=== PATIENT | female | born 1940 | race Caucasian/White ===

== ENCOUNTER 2019-06-08 13:55 | Day surgery (SDC) | payer MEDICARE, BC ==
[2019-06-02 17:02] LABS: BASOPHILS # (AUTO) 0.1 X10'3 (0-0.2); BASOPHILS % (AUTO) 1.3 % (0-1); EOSINOPHILS # (AUTO) 0.8 X10'3 (0-0.9); EOSINOPHILS % (AUTO) 10.9 % (0-6); HEMATOCRIT 47.3 % (35.0-45.0); HEMOGLOBIN 15.7 g/dl (12.0-16.0); LYMPHOCYTES % (AUTO) 26.3 % (21-51); MEAN CORPUSCULAR HEMOGLOBIN 30.2 PG (27.0-31.0); MEAN CORPUSCULAR HGB CONC 33.2 g/dL (33.0-36.5); MEAN CORPUSCULAR VOLUME 90.9 FL (78-98); MEAN PLATELET VOLUME 8.6 FL (7.4-10.4); MONOCYTES # (AUTO) 1.1 X10'3 (0-0.9); MONOCYTES % (AUTO) 14.5 % (2-12); NEUTROPHILS # (AUTO) 3.6 X10'3 (1.8-7.7); PLATELET COUNT 247 X10'3 (140-440); RED CELL DISTRIBUTION WIDTH 13.8 % (11.5-14.5); WHITE BLOOD COUNT 7.6 X10'3 (4.5-11.0)
[2019-06-02 17:06] LABS: ALBUMIN 3.4 G/DL (3.4-5.0); ANION GAP 5 (8-16); BLOOD UREA NITROGEN 20 MG/DL (7-18); BUN/CREATININE RATIO 23.8 (6.6-38.0); CALCIUM 8.8 MG/DL (8.5-10.1); CHLORIDE 108 MMOL/L (99-107); CREATININE 0.84 MG/DL (0.40-0.90); GLUCOSE 89 MG/DL (70-104); POTASSIUM 4.1 MMOL/L (3.5-5.1); SODIUM 144 MMOL/L (135-145); TOTAL CARBON DIOXIDE 31.1 MMOL/L (24-32); eGFR 65 ML/MIN
[2019-06-02 17:17] LABS: PARTIAL THROMBOPLASTIN TIME 42 SECONDS (22-32)
[~2019-06-08] VITALS: Ht 147.3 cm; Wt 53.2 kg
[2019-06-08] VITALS (14 sets, daily range): BP systolic 124–160; BP diastolic 62–91
[~2019-06-08 13:55] MED LIST: CALC-472 PO; CARSR60C PO; CHLO500T2 PO; CHOL100062 PO; COU4T PO; HYDR-4353 PO; LORA1TAB PO; OMEG-79 PO; PERICOLACE; POLY17PO10 PO; RANI-648 PO; VITA1CAP62 PO
[2019-06-08] MEDS ORDERED: MIDAZolam 5mg/ml 2ml vial IV ONE (14:10)
[2019-06-08] MEDS ORDERED: fentaNYL/PF 50MCG/1 ML 2ML syringe IV ONE (14:10)
[2019-06-08] MEDS ORDERED: normal saline 1000ml 1,000 ML IV SCH (14:10)
[2019-06-08] MEDS ORDERED: BIOT50002 PEG (14:34)
[2019-06-08] MEDS ORDERED: ESCI5TAB PO (14:34)
[2019-06-08] MEDS ORDERED: AMIO200T36 PO (14:34)
[2019-06-08] MEDS ORDERED: DENO60DI (14:34)
[2019-06-08] MEDS ORDERED: MAGN500C16 PO (14:34)
[2019-06-08] MEDS ORDERED: HYDR12.5 PO (14:34)
[2019-06-08] MEDS ORDERED: pro air inhaler INH (14:34)
== END 2019-06-08 18:45 | disposition home or self-care (01) ==
LOC: SSTAY O 13:55
PROVIDERS: ATTEND Internal Medicine Interventional Cardiology
DX: I48.0 Paroxysmal atrial fibrillation (principal); I10 Essential (primary) hypertension; I48.92 Unspecified atrial flutter; Z85.3 Personal history of malignant neoplasm of breast; Z88.0 Allergy status to penicillin; Z88.8 Allergy status to other drugs, medicaments and biological substances; Z79.01 Long term (current) use of anticoagulants; Z79.899 Other long term (current) drug therapy
CPT/HCPCS: 36415; 80048; 85025; 85610; 85730; 92960; 93005; 94760; J2250; J3010; J7030

== ENCOUNTER 2019-08-19 07:07 | Outpatient (CLI) | payer MEDICARE, BC ==
[~2019-08-19] VITALS: Ht 147.3 cm; Wt 54.0 kg
[~2019-08-19 07:07] MED LIST changes: +AMIO200T36 PO; +BIOT50002 PEG; -CHLO500T2 PO; +DENO60DI; +ESCI5TAB PO; +HYDR12.5 PO; +MAGN500C16 PO; -PERICOLACE; +pro air inhaler INH
[2019-08-19 07:35] LABS: TOTAL HEMOGLOBIN 16.6 G/dl (12.0-16.0)
[2019-08-19] MEDS ORDERED: albuterol 2.5 MG/3 ML nebule NEB PRN (07:50)
== END 2019-08-19 23:59 | disposition home or self-care (01) ==
LOC: RT 07:07
PROVIDERS: ATTEND Specialist
DX: J98.4 Other disorders of lung (principal); I48.0 Paroxysmal atrial fibrillation; I10 Essential (primary) hypertension; F17.200 Nicotine dependence, unspecified, uncomplicated; Z88.0 Allergy status to penicillin; Z79.899 Other long term (current) drug therapy
CPT/HCPCS: 85018; 94060; 94727; 94729; 94760

== ENCOUNTER 2023-07-14 06:03 | Inpatient (IN) | payer MEDICARE, BC ==
[~2023-07-14] VITALS: Ht 147.3 cm; Wt 55.5 kg
[~2023-07-14 06:03] MED LIST changes: +ALBU18HF2 INH; -AMIO200T36 PO; +APIX5TAB3 PO; -BIOT50002 PEG; -CALC-472 PO; -CARSR60C PO; -CHOL100062 PO; -COU4T PO; -DENO60DI; +DENO60DI SQ; +DILT60TA3 PO; +DILT60TA41 PO; +ESCI-8 PO; -ESCI5TAB PO; +FLUT1BLS4 INH; -HYDR12.5 PO; +HYDR12.55 PO; +LIDO700A47 TOP; +LORA-269 PO; -LORA1TAB PO; -MAGN500C16 PO; -OMEG-79 PO; -POLY17PO10 PO; -RANI-648 PO; -pro air inhaler INH
[2023-07-14] MEDS ORDERED: morphine 4 MG/ML inj SYRINge IV ONE ×2 (07:05→07:50)
[2023-07-14] MEDS ORDERED: ondansetron/PF 4mg/2ml inj IV ONE (07:05)
--- NOTE | 2023-07-14 08:14 | NUR ---
PT C/O LEFT ARM PAIN STARTING TO RADIATE UP TO HER NECK. RN ORD EKG AND APPLIED LAMP INSPECTOR.
[2023-07-14] MEDS ORDERED: HYDROmorphone 1 mg/ml syringe IV ONE (09:00)
[2023-07-14] MEDS ORDERED: normal saline 500ml IV soln 500 ML IV SCH (09:00)
[2023-07-14 09:04] LABS: APTT 34 SECONDS (22-32); INR 1.1 INR; PROTHROMBIN TIME 11.7 SECONDS (9.0-12.0)
[2023-07-14 09:06] LABS: BASOPHILS % (AUTO) 0.3 % (0-1); EOSINOPHILS % (AUTO) 0.3 % (0-6); HEMATOCRIT 47.3 % (35.0-45.0); HEMOGLOBIN 15.8 g/dl (12.0-16.0); LYMPHOCYTES # (AUTO) 0.7 X10'3 (1.1-4.8); LYMPHOCYTES % (AUTO) 5.1 % (21-51); MEAN CORPUSCULAR HEMOGLOBIN 31.3 PG (27.0-31.0); MEAN CORPUSCULAR HGB CONC 33.4 g/dL (33.0-36.5); MEAN CORPUSCULAR VOLUME 93.7 FL (78-98); MEAN PLATELET VOLUME 9.2 FL (7.4-10.4); MONOCYTES # (AUTO) 1.3 X10'3 (0-0.9); NEUTROPHILS # (AUTO) 12.4 X10'3 (1.8-7.7); NEUTROPHILS % (AUTO) 85.3 % (42-75); PLATELET COUNT 202 X10'3 (140-440); RED BLOOD COUNT 5.05 X10'6 (4.20-5.60); WHITE BLOOD COUNT 14.5 X10'3 (4.5-11.0)
[2023-07-14 09:19] LABS: ALANINE AMINOTRANSFERASE 29 U/L (12-78); ALBUMIN 3.6 G/DL (3.4-5.0); ALBUMIN/GLOBULIN RATIO 1.2 (1.1-1.5); ALKALINE PHOSPHATASE 55 IU/L (46-116); ANION GAP 8 (8-16); ASPARTATE AMINO TRANSFERASE 26 U/L (10-37); BILIRUBIN,TOTAL 2.2 MG/DL (0.1-1.0); BLOOD UREA NITROGEN 15 MG/DL (7-18); BUN/CREATININE RATIO 25.9 (10.0-20.0); CALCIUM 8.7 MG/DL (8.5-10.1); CHLORIDE 99 MMOL/L (99-107); CREATININE 0.58 MG/DL (0.40-0.90); GLUCOSE 140 MG/DL (70-104); MAGNESIUM 2.2 MG/DL (1.5-2.4); POTASSIUM 3.1 MMOL/L (3.5-5.1); SODIUM 136 MMOL/L (135-145); TOTAL CARBON DIOXIDE 29.1 MMOL/L (24-32); TOTAL PROTEIN 6.5 G/DL (6.4-8.2); eCRCL 47 ML/MIN; eGFR > 90 ML/MIN
--- NOTE | 2023-07-14 11:02 | NUR ---
PER DR BOYKIN RN FEBRUARY ORD 1 MG ATIVAN PO FOR PT FOR MRI AND ADMIN. MRI NOTIFIED.
[2023-07-14] MEDS ORDERED: LORazepam 1 MG tablet PO ONE (11:05)
[2023-07-14] MEDS ORDERED: HYDROmorphone inj. 0.5 MG/0.5 ML DISP.SYRIN IV ONE (11:15)
--- NOTE | 2023-07-14 11:27 | NUR ---
RN PAGED EMMETT RN TO GO WITH PT TO MRI D/T SHE NEEDS TO BE MONITORED D/T PAIN MEDS ADMIN.
--- NOTE | 2023-07-14 11:35 | NUR ---
SHADOW RN WILL GO WITH PT TO MRI WITH MONITOR.
--- NOTE | 2023-07-14 13:19 | NUR ---
PER DR BOYKIN RN MAY CXL US OF LEFT ARM AND ORD HEART HEALTHY DIET FOR PT.
[2023-07-14] MEDS ORDERED: magnesium 4gm in 100ml NS 100 ML IV PRN (13:55)
[2023-07-14] MEDS ORDERED: magnesium 2GM in 50ml NS 50 ML IV PRN (13:55)
[2023-07-14] MEDS ORDERED: potassium Cl 40MEQ/1/2NS 520ml 520 ML IV PRN (13:55)
[2023-07-14] MEDS ORDERED: HYDROmorphone/PF 0.2 MG/ML SYRINGE IV PRN (13:55)
[2023-07-14] MEDS ORDERED: HYDROmorphone inj. 0.5 MG/0.5 ML DISP.SYRIN IV PRN (13:55)
[2023-07-14] MEDS ORDERED: magnesium Cl slow-release 64mg tablet PO PRN (13:55)
[2023-07-14] MEDS ORDERED: potassium Cl 20 mEq SR tablet PO PRN ×2 (13:55)
[2023-07-14] MEDS ORDERED: acetaminophen 325mg tablet PO PRN (13:55)
--- NOTE | 2023-07-14 15:03 | NUR ---
RN ATTEMPTED TO CALL REPORT AND THERE WAS NO ANSWER. RN WILL CONT TO TRY.
--- NOTE | 2023-07-14 15:14 | NUR ---
Report received from Od[place] CAREY. Patient K 3.1 without replacement, replacement protocol in place. RN states she will give her a dose of K before transferring up to the unit.
[2023-07-14 15:30] VITALS: RESP 18
--- NOTE | 2023-07-14 15:30 | NUR ---
Patient on the unit with family at bedside.
[2023-07-14 18:00] VITALS: BP 154/71; PULSE 84; RESP 18; TEMP 98.1; O2SAT 95
--- NOTE | 2023-07-14 18:17 | NUR ---
Report given to Pawan CAREY.
[2023-07-14] MEDS ORDERED: HYDROcodone/acetaminophen 10/325mg tab PO PRN (18:40)
[2023-07-14] MEDS ORDERED: albuterol 2.5 MG/3 ML nebule NEB PRN (20:00)
[2023-07-14] MEDS ORDERED: diltiazem 60mg tablet PO SCH (20:00)
[2023-07-14] MEDS: K and/or MAG REPLACEMENT MC SCH (20:00)
[2023-07-14 20:15] VITALS: BP 142/82; PULSE 104; RESP 18; O2SAT 99
[2023-07-14] MEDS: diltiazem 30mg tablet PO SCH (20:17)
[2023-07-14] MEDS: docusate sod 100mg capsule PO SCH (20:19)
[2023-07-14 22:00] VITALS: BP 137/71; PULSE 79; RESP 16; TEMP 98.5; O2SAT 94
[2023-07-15] MEDS: HYDROcodone/acetaminophen 10/325mg tab PO PRN ×4 (02:18→20:26)
--- NOTE | 2023-07-15 05:37 | NUR ---
agree with assessments and charting for SHILA Hillman.
--- NOTE | 2023-07-15 06:28 | NUR ---
Problems reprioritized. Patient report given, questions answered & plan of care reviewed with CHRERY Isaacs.
--- NOTE | 2023-07-15 06:32 | NUR ---
Report received from NOC Shift.
[2023-07-15 06:38] LABS: ALBUMIN 3.1 G/DL (3.4-5.0); ANION GAP 4 (8-16); BLOOD UREA NITROGEN 10 MG/DL (7-18); BUN/CREATININE RATIO 19.6 (10.0-20.0); CALCIUM 8.6 MG/DL (8.5-10.1); CHLORIDE 103 MMOL/L (99-107); CREATININE 0.51 MG/DL (0.40-0.90); GLUCOSE 115 MG/DL (70-104); MAGNESIUM 2.5 MG/DL (1.5-2.4); POTASSIUM 3.9 MMOL/L (3.5-5.1); SODIUM 138 MMOL/L (135-145); TOTAL CARBON DIOXIDE 30.8 MMOL/L (24-32); eCRCL 53 ML/MIN; eGFR > 90 ML/MIN
[2023-07-15 06:50] LABS: BASOPHILS % (AUTO) 0.3 % (0-1); EOSINOPHILS # (AUTO) 0.1 X10'3 (0-0.9); HEMOGLOBIN 14.4 g/dl (12.0-16.0); LYMPHOCYTES # (AUTO) 0.8 X10'3 (1.1-4.8); LYMPHOCYTES % (AUTO) 6.5 % (21-51); MEAN CORPUSCULAR HEMOGLOBIN 31.6 PG (27.0-31.0); MEAN CORPUSCULAR HGB CONC 33.6 g/dL (33.0-36.5); MEAN CORPUSCULAR VOLUME 94.3 FL (78-98); MEAN PLATELET VOLUME 9.8 FL (7.4-10.4); MONOCYTES # (AUTO) 1.8 X10'3 (0-0.9); MONOCYTES % (AUTO) 14.5 % (2-12); NEUTROPHILS # (AUTO) 9.9 X10'3 (1.8-7.7); NEUTROPHILS % (AUTO) 77.7 % (42-75); PLATELET COUNT 184 X10'3 (140-440); RED BLOOD COUNT 4.57 X10'6 (4.20-5.60); WHITE BLOOD COUNT 12.7 X10'3 (4.5-11.0)
[2023-07-15] MEDS: K and/or MAG REPLACEMENT MC SCH ×2 (08:00→19:47)
[2023-07-15] MEDS: docusate sod 100mg capsule PO SCH ×2 (08:00→19:58)
[2023-07-15] MEDS: LIDOcaine 5% patch TP SCH (08:00)
[2023-07-15] MEDS: ESCITALOPRAM OXALATE 5 MG TABLET PO SCH (08:05)
[2023-07-15] MEDS: HYDROchlorothiazide 12.5mg capsule PO SCH (08:05)
[2023-07-15] MEDS: diltiazem 30mg tablet PO SCH ×3 (08:06→20:26)
[2023-07-15] MEDS: vitamin B comp w/Vit. C tab 1 TAB TABLET PO SCH (08:07)
[2023-07-15 08:17] VITALS: RESP 20
[2023-07-15 10:00] VITALS: BP 105/64; PULSE 74; RESP 18; TEMP 98; O2SAT 96
[2023-07-15] MEDS: LORazepam 1 MG tablet PO PRN ×2 (12:41→22:48)
[2023-07-15 18:00] VITALS: BP 124/69; PULSE 95; RESP 16; TEMP 98.4; O2SAT 94
--- NOTE | 2023-07-15 18:13 | NUR ---
Report given to Kalyani CAREY
--- NOTE | 2023-07-15 18:30 | NUR ---
Patient in room [facility] 4015. I have received report from CHERRY Isaacs and had the opportunity to ask questions and assume patient care.
[2023-07-15 22:00] VITALS: BP 129/64; PULSE 75; RESP 14; TEMP 98.2; O2SAT 97
[2023-07-16] MEDS: HYDROcodone/acetaminophen 10/325mg tab PO PRN ×2 (03:19→10:04)
[2023-07-16 06:00] VITALS: BP 129/64; PULSE 75; RESP 14; TEMP 98.2; O2SAT 97
--- NOTE | 2023-07-16 06:29 | NUR ---
Problems reprioritized. Patient report given, questions answered & plan of care reviewed with SHILA DEL ROSARIO.
[2023-07-16 07:26] LABS: BASOPHILS # (AUTO) 0.1 X10'3 (0-0.2); BASOPHILS % (AUTO) 0.5 % (0-1); EOSINOPHILS # (AUTO) 0.2 X10'3 (0-0.9); EOSINOPHILS % (AUTO) 1.8 % (0-6); HEMATOCRIT 41.6 % (35.0-45.0); HEMOGLOBIN 13.8 g/dl (12.0-16.0); LYMPHOCYTES # (AUTO) 1.2 X10'3 (1.1-4.8); LYMPHOCYTES % (AUTO) 11.3 % (21-51); MEAN CORPUSCULAR HEMOGLOBIN 31.5 PG (27.0-31.0); MEAN CORPUSCULAR HGB CONC 33.3 g/dL (33.0-36.5); MEAN CORPUSCULAR VOLUME 94.6 FL (78-98); MEAN PLATELET VOLUME 9.6 FL (7.4-10.4); MONOCYTES % (AUTO) 18.3 % (2-12); NEUTROPHILS # (AUTO) 7.5 X10'3 (1.8-7.7); NEUTROPHILS % (AUTO) 68.1 % (42-75); PLATELET COUNT 176 X10'3 (140-440); RED BLOOD COUNT 4.39 X10'6 (4.20-5.60)
[2023-07-16] MEDS: ESCITALOPRAM OXALATE 5 MG TABLET PO SCH (07:36)
[2023-07-16] MEDS: vitamin B comp w/Vit. C tab 1 TAB TABLET PO SCH (07:37)
[2023-07-16] MEDS: docusate sod 100mg capsule PO SCH (07:37)
[2023-07-16] MEDS: HYDROchlorothiazide 12.5mg capsule PO SCH (07:37)
[2023-07-16] MEDS: diltiazem 30mg tablet PO SCH (07:40)
[2023-07-16] MEDS: LIDOcaine 5% patch TP SCH (07:41)
[2023-07-16 07:48] LABS: ALBUMIN 2.9 G/DL (3.4-5.0); ANION GAP 8 (8-16); BLOOD UREA NITROGEN 8 MG/DL (7-18); BUN/CREATININE RATIO 15.1 (10.0-20.0); CALCIUM 8.4 MG/DL (8.5-10.1); CHLORIDE 104 MMOL/L (99-107); CREATININE 0.53 MG/DL (0.40-0.90); GLUCOSE 100 MG/DL (70-104); MAGNESIUM 2.4 MG/DL (1.5-2.4); POTASSIUM 3.4 MMOL/L (3.5-5.1); SODIUM 141 MMOL/L (135-145); TOTAL CARBON DIOXIDE 29.2 MMOL/L (24-32); eCRCL 51 ML/MIN; eGFR > 90 ML/MIN
[2023-07-16 08:01] LABS: TOTAL CELLS COUNTED 100
[2023-07-16 08:02] LABS: PLATELET ESTIMATE NORMAL
[2023-07-16 10:04] VITALS: RESP 16
--- NOTE | 2023-07-16 11:00 | NUR ---
Patient discharged home per MD orders. No significant findings in left arm. IV removed. Patient discharged with daughter to home. Will follow up with regarding stoping ced per hospitalist.
--- NOTE | 2023-07-16 13:00 | NUR ---
I have reviewed and agree with interventions, assessments, and documentation by Laila Dunn LVN.
== END 2023-07-16 11:30 | disposition home or self-care (01) | DRG 563 ==
LOC: ER 06:04 → ED HOLD 13:58 → ORTHO 4S 15:23
PROVIDERS: ADMIT Internal Medicine; ATTEND Internal Medicine
DX: S46.212A Strain of muscle, fascia and tendon of other parts of biceps, left arm, initial encounter (principal); S46.222A Laceration of muscle, fascia and tendon of other parts of biceps, left arm, initial encounter; S40.022A Contusion of left upper arm, initial encounter; E87.6 Hypokalemia; Z66 Do not resuscitate; I48.91 Unspecified atrial fibrillation; G89.29 Other chronic pain; F32.A Depression, unspecified; F41.9 Anxiety disorder, unspecified; D72.829 Elevated white blood cell count, unspecified; M54.9 Dorsalgia, unspecified; J44.9 Chronic obstructive pulmonary disease, unspecified; X58.XXXA Exposure to other specified factors, initial encounter; I10 Essential (primary) hypertension; Z86.73 Personal history of transient ischemic attack (TIA), and cerebral infarction without residual deficits; Z88.0 Allergy status to penicillin; Z85.820 Personal history of malignant melanoma of skin; Z85.3 Personal history of malignant neoplasm of breast; Y93.89 Activity, other specified; Z79.01 Long term (current) use of anticoagulants; Z79.899 Other long term (current) drug therapy; Y92.89 Other specified places as the place of occurrence of the external cause; Y99.8 Other external cause status
CPT/HCPCS: 36415; 73060; 73080; 73110; 73218; 80048; 80053; 83735; 84145; 84484; 85007; 85025; 85610; 85730; 87081; 93005; 93971; 97116; 97161; 97530; 99285; A4565; A6253; A6446; A6449; G0378; J1170; J2270; J2405; J7030; J7040